=== PATIENT | female | born 1995 | race Caucasian/White ===

== ENCOUNTER 2016-10-06 14:34 | Emergency (ER) | payer SELFPAY ==
[~2016-10-06] VITALS: Ht 162.6 cm; Wt 59.0 kg
[2016-10-06 14:45] VITALS: BP 121/85
== END 2016-10-06 15:23 | disposition left against medical advice (07) ==
LOC: ER 14:41
DX: M79.644 Pain in right finger(s) (principal); F17.200 Nicotine dependence, unspecified, uncomplicated
CPT/HCPCS: A4606; Z7502; Z7610